=== PATIENT | male | born 1960 | race Caucasian/White ===

== ENCOUNTER 2018-12-03 08:40 | Inpatient (IN) ==
[2018-12-03] MEDS ORDERED: NS 1,000 ML IV ONE ×2 (09:06→11:56)
[2018-12-03] MEDS ORDERED: TORADOL IV ONE (09:06)
--- NOTE | 2018-12-03 09:48 | Diag Imaging Result Doc PS360 ---
CT ABDOMEN/PELVIS W/O CONTRAST - 12/03/2018 INDICATION: Right-sided flank pain COMPARISON: 09/22/2014 FINDINGS: The lung bases are clear and the heart size is normal. There is a huge obstructing right proximal ureter stone. This measures 17 x 8 mm. There is severe right hydronephrosis. No distal stones. No left-sided obstruction. No other renal stones. Benign left renal cyst. No bowel obstruction or inflammation. Normal appendix. Mild diverticulosis of the colon. Urinary bladder, prostate, and rectum are normal. There are moderate degenerative changes of the spine. No acute or suspicious bony lesion. IMPRESSION: Very large obstructing right proximal ureter stone. Severe right hydronephrosis. This exam was performed using automated exposure control, adjustment of mA or kV according to patient size, and/or use of iterative reconstruction technique Electronically signed by Jonah Rodríguez 12/03/2018 9:46 AM
[2018-12-03 10:47] LABS: URINE SOURCE CLEAN CATCH
[2018-12-03 10:50] LABS: BILIRUBIN URINE NEGATIVE (NEGATIVE); BLOOD URINE MODERATE (NEGATIVE); COLOR YELLOW; GLUCOSE URINE NEGATIVE (NEGATIVE); KETONE URINE NEGATIVE (NEGATIVE); LEUKOCYTES URINE NEGATIVE (NEGATIVE); NITRITE URINE NEGATIVE (NEGATIVE); PROTEIN URINE TRACE mg/dL (NEGATIVE); SP GRAVITY URINE 1.011; TURBIDITY URINE CLEAR (CLEAR); UROBILINOGEN URINE NORMAL (NORMAL)
[2018-12-03 10:51] LABS: UR EPITHELIAL CELLS <10 /HPF (<10); URINE BACTERIA NEGATIVE /HPF; URINE RBC 20-40 /HPF (<10); URINE WBC <10 /HPF (<10)
[2018-12-03] MEDS ORDERED: ZOFRAN IV PRN (11:56)
--- NOTE | 2018-12-03 12:40 | PROVIDER DOCUMENTATION ---
This chart was entered by Riya Trammell Scribe, acting as scribe for Rafael Walters MD. HPI-Male Problem - General Chief Complaint: Flank Pain Stated Complaint: KIDNEYSTONE Time Seen by Provider: 12/03/18 09:01 Source: patient Allergies/Adverse Reactions: Patient Allergies Allergy/AdvReac Type Severity Reaction Status Date / Time No Known Allergies Allergy Verified 09/24/14 11:32 Home Medications: Home Medication List Medication Instructions Recorded Confirmed Last Taken Type Bisoprolol Fumarate/Hctz 1 each PO DAILY 09/24/14 12/03/18 12/02/18 History [Bisoprolol-Hctz 5-6.25 mg Tab] 5-6.25 mg - History of Present Illness-Male Nature of Presenting Problem: 58yom presents to ED cc right flank pain, decreased urine output and nausea since Sunday. Pt reports he has hx of kidney stones. Pt denies v/d. Pt is nontoxic and afebrile upon exam. Location of Complaint: reports: right flank Radiation: reports: none Quality of Pain: reports: sharp Severity in ED: reports: moderate Onset/Duration: reports: 5 days ago Timing: reports: still present Context/Activities at Onset: reports: light activity Urinary Symptoms: reports: retention Associated Symptoms: reports: nausea. denies: diarrhea, vomiting Similar Symptoms Previously?: Yes Recently seen or treated by another doctor?: No Review of Systems - Adult - REVIEW OF SYSTEMS - ADULT Constitutional: reports: see HPI. denies: chills, fever, fatique Eyes: reports: no symptoms reported Ears, Nose, Mouth & Throat: reports: no symptoms reported Cardiovascular: reports: no symptoms reported Respiratory: reports: no symptoms reported Gastrointestinal: reports: see HPI, nausea. denies: abdominal pain, diarrhea, vomiting Genitourinary: reports: see HPI, flank pain (right), urinary retention Musculoskeletal: reports: no symptoms reported Integumentary: reports: no symptoms reported Neurological: reports: no symptoms reported Psychiatric: reports: no symptoms reported Endocrine: reports: no symptoms reported Hematologic/Lymphatic: reports: no symptoms reported Allergic/Immunologic: reports: no symptoms reported All Other Systems: Reviewed and Negative Past History - Adult - PAST MEDICAL HISTORY-ADULT Review of Records: reports: Nursing Assessment Review, Medications Reviewed, Social history reviewed & non-contributory. Major Childhood Illnesses: reports: denies history Cardiovascular: reports: denies history Respiratory: reports: denies history Gastrointestinal: reports: denies history Obstetrical/Gynecological: reports: denies history Genitourinary: reports: denies history Musculoskeletal: reports: denies history Neurological: reports: denies history Endocrine/Immune: reports: denies history Other Conditions: reports: denies history - IMMUNIZATION STATUS Childhood Immunizations: See Nurse Assessment Flu Vaccine: See Nurse Assessment - FAMILY HISTORY Family History: reviewed, not pertinent - SOCIAL HISTORY Smoking: cigarettes, greater than 1 pack/day Provider spent 3-5 mins advising pt. on dangers of tobacco.: Discussed manners to quit use, and f/u contacts for add'l counseling. Physical Exam-General - PHYSICAL EXAM-ADULT Initial Vital Signs Reviewed: Yes - CONSTITUTIONAL General Appearance: appears well, alert, no apparent distress. negative: anxious, combative - EYES Eyes: PERRL/EOMI, pink conjunctivae. negative: photophobia - HEAD, EARS, NOSE, MOUTH & THROAT HENMT: normocephalic/atraumatic, moist mucous membranes. negative: angioedema - RESPIRATORY Respiratory: chest non-tender, lungs clear, normal breath sounds. negative: stridor, wheezing - CARDIOVASCULAR Cardiovascular: normal peripheral pulses, regular rate, rhythm, no edema. negative: bradycardia, tachycardia - GASTROINTESTINAL (ABDOMEN) Abdominal Exam: normal bowel sounds, non tender, soft. negative: rebound, tenderness - MUSCULOSKELETAL Back Exam: no vertebral tenderness, CVA tenderness (right) Extremity: normal inspection. negative: deformity - SKIN Integumentary: normal color. negative: diaphoresis, jaundice - PSYCHIATRIC Psych/Mental Status: normal mood/affect, oriented x 3. negative: anxious, disheveled Progress - PLAN OF CARE/RESULTS Progress/Plan/Lab Results: Vital Signs - 8 hr 12/03/18 08:45 12/03/18 09:46 12/03/18 10:00 Temperature 97.5 F L Pulse Rate 62 Respiratory Rate 18 Blood Pressure 148/93 138/94 140/90 O2 Sat by Pulse Oximetry 98 96 97 12/03/18 10:02 Temperature Pulse Rate Respiratory Rate Blood Pressure 138/87 O2 Sat by Pulse Oximetry Laboratory Results - last 24 hr 12/03/18 10:33 Urine Source CLEAN CATCH Urine Color YELLOW Urine Turbidity CLEAR Urine pH 7.0 Ur Specific [place] 1.011 Urine Protein TRACE A Ur Glucose (Stick) NEGATIVE Ur Ketones (Stick) NEGATIVE Urine Blood MODERATE A Urine Nitrite NEGATIVE Urine Bilirubin NEGATIVE Urobilinogen Dipstick NORMAL Urine Leukocytes NEGATIVE Urine WBC (Auto) <10 Urine RBC (Auto) 20-40 A U Epithel Cells (Auto) <10 Urine Bacteria (Auto) NEGATIVE Orders Category Date Time Status Admit - [facility] Routine AdmDCTranf 12/03/18 11:56 Active Activity - Bed Rest with BRP ORDERED Care 12/03/18 11:56 Active Nursing- MD Consult Request ROUTINE Care 12/03/18 11:59 Active Saline Loc DIRECTED Care 12/03/18 11:56 Active Vital Signs Order ROUTINE Care 12/03/18 11:56 Active Z-Document. for Tele Applied ORDERED Care 12/03/18 11:57 Active Physician/Provider Consults Routine Cons 12/03/18 11:56 Ordered Heart Healthy Diet Diet 12/03/18 11:[address] ABDOMEN/PELVIS W/O CONTRAST [CT] Stat Exams 12/03/18 09:06 Completed CBC WITH ELECTRONIC DIFF [HEME] Stat Lab 12/03/18 11:54 Uncollected COMPREHENSIVE METABOLIC PANEL [CHEM] Stat Lab 12/03/18 11:54 Uncollected URINALYSIS W/POSS RFLX CULT [URINALYSIS] Stat Lab 12/03/18 10:33 Completed 0.9% Sodium Chloride Inj [Ns] 1,000 ml Med 12/03/18 11:56 Active IV 200 mls/hr 0.9% Sodium Chloride Inj [Ns] 1,000 ml Med 12/03/18 09:06 Discontinued IV 999 mls/hr Hydromorphone [Dilaudid] Med 12/03/18 11:56 Active 1 mg IV Q4H PRN PRN Ketorolac [Toradol] Med 12/03/18 09:06 Discontinued 15 mg IV NOW ONE Ketorolac [Toradol] Med 12/03/18 14:00 Active 15 mg IV Q4H PRN PRN Ondansetron [Zofran] Med 12/03/18 11:56 Active 4 mg IV Q4H PRN PRN Telemetry [OM.EQ] Routine Oth 12/03/18 11:56 Active Transfer/Admit Order [TRANSFER] Routine Transfer 12/03/18 11:59 Ordered - CT/MRI 1 CT Study: Abdomen, Pelvis Impression: See EMR Report (IMPRESSION: Very large obstructing right proximal ureter stone. Severe right hydronephrosis. This exam was performed using automated exposure control, adjustment of mA or kV according to patient size, and/or use of iterative reconstruction technique Electronically signed by Alexa Rodríguez 12/03/2018 9:46 AM 12/03/18 0946) - CONSULTS/PCP/HOSPITALIST Notification #1 *Consult/PCP/Hospitalist*: Dr. Dunbar Time Discussed: 11:48 Consult Disposition: other (will see pt upstairs) #2 Consult: Time Discussed: 11:55 Consult Disposition: Admit (accepted pt) Departure - Departure Date of Disposition Decision: 12/03/18 Time of Disposition Decision: 12:40 DIAGNOSIS: Ureterolithiasis Disposition: ADMITTED INPATIENT 09 Certified Medical Emergency: Emergent Condition: Stable Additional Freetext Instructions: ED Follow Up Instructions: You have been treated by a care provider in the Emergency Department. These instructions are being provided to you so you can have an understanding of how to care for yourself upon discharge. Upon discharge from the Emergency Department, you are responsible for making arrangements for follow-up care by a physician of your choice. Take all prescribed medications as directed. Return to the Emergency Department immediately for any new or worsening sy mptoms. You may call the Physician Referral phone number at [phone] to obtain a list of Physicians who are taking new patients. Referrals and Follow-Ups: Theron Park MD [Primary Care Provider] - Discharge Education: Steps to Quit Smoking, [id number] - Critical Care Note This patient required my direct & personal management of CC.: No Attestation - Physician/ KRISTA Attestation Patient care was provided by Advanced Practice Provider:: No The physician spent face to face time with patient:: Yes Advanced Practice Provider documentation review:: Supervising physician onsite and consulted in the evaluation and care of this patient. The physician did have a face to face encounter with the patient. This chart was documented by the indicated scribe, (Riya Trammell Scribe) and accurately reflects the services I performed and decisions made by me, Rafael Walters MD, as attested by the provider's signature.
[2018-12-03 12:53] LABS: BASO# 0.03 X1000 (0.0-0.2); BASO% 0.3 % (0.0-0.8); EOS# 0.07 X1000 (0.0-0.7); EOS% 0.7 % (0.0-10.0); HEMATOCRIT 48.2 % (42.0-52.0); HEMOGLOBIN 16.3 g/dL (14.0-18.0); IMM GRAN# 0.02 X1000 (0.0-0.04); IMM GRAN% 0.2 % (0.0-0.5); LYMPH# 2.77 X1000 (1.2-3.4); LYMPH% 27.6 % (20.5-51.1); MCHC 33.8 g/dL (33-37); MCV 91.6 FL (81-99); MONO# 0.88 X1000 (0.11-0.59); MONO% 8.8 % (1.7-9.3); MPV 10.8 FL (7.4-10.4); NEUT# 6.25 X1000 (1.4-6.5); NEUT% 62.4 % (42.2-75.2); PLT 189 X1000 (130-400); RBC 5.26 XMIL (4.7-6.1); WBC 10.02 X1000 (4.8-10.8)
[2018-12-03 13:11] LABS: AGAP 13; ALB/GLOB RATIO 1.2; ALBUMIN 4.5 g/dL (3.5-5.0); ALKALINE PHOSPHATASE 83 U/L (32-122); BUN 17 mg/dL (8-22); CALCIUM 8.8 mg/dL (8.8-10.2); CHLORIDE 100 mmol/L (98-107); COSMO 279; CREATININE 0.9 mg/dL (0.7-1.2); ESTIMATED GFR > 60; GLUCOSE 101 mg/dL (70-104); GOT 21 U/L (10-34); GPT 22 U/L (10-44); POTASSIUM 3.7 mmol/L (3.5-5.1); SODIUM 139 mmol/L (136-145); TCO2 26 mmol/L (25-35); TOTAL BILIRUBIN 0.47 mg/dL (0.20-1.00); TOTAL PROTEIN 8.2 g/dL (6.3-8.3)
[2018-12-03] MEDS: DILAUDID IV PRN ×3 (13:32→22:37)
[2018-12-03] MEDS ORDERED: TORADOL IV PRN (14:00)
--- NOTE | 2018-12-03 19:36 | CONSULTATION ---
DATE OF CONSULTATION: 12/03/2018 CONSULTING PHYSICIAN: Emergency room staff. REASON FOR CONSULTATION: Right ureteral stone. HISTORY OF PRESENT ILLNESS: A 58-year-old male with extensive history of urolithiasis in the past, who developed right flank pain five days ago when he was in [place]. The pain persisted and he made his way back to [place], where he presented to the emergency room, with CT scan of abdomen and pelvis revealing a 17 x 8 mm right proximal ureteral stone. He was admitted to Dr. Park's service and Urology was consulted. Patient has history of urolithiasis, and has had both ureteroscopy with stone basket extraction and stent, as well as extracorporeal shockwave lithotripsy by both Dr. Lux and Dr. Pugh in the remote past. Per review of the clinical records, he was last seen in 2014, when in September, he had left ureteroscopy with laser lithotripsy, basket extraction, and placement of stent. He did not come in for his postoperative followup. He denies having his stones analyzed, although again per record review, he had several stone analyses, most recent in October 2014, revealing calcium oxalate and calcium phosphate mixture. PAST MEDICAL HISTORY: Hypertension, metabolic syndrome, neuropathy, borderline cholesterol per patient, and urolithiasis. PAST SURGICAL HISTORY: ESWL, ureteroscopy with laser lithotripsy and stone basket extraction. ALLERGIES: No known drug allergies. HOME MEDICATIONS: Norvasc, bisoprolol/hydrochlorothiazide, gabapentin, and Hyzaar. SOCIAL HISTORY: Smokes 1-1/2 packs per week. Denies illicit drug use. FAMILY HISTORY: Positive for bladder cancer in his father, who had to undergo cystectomy. REVIEW OF SYSTEMS: Given and 12 systems negative, except as per the HPI. PHYSICAL EXAMINATION: T 98.1 degrees, P 50, BP 141/84.General: No acute distress. HEENT: Normocephalic, atraumatic. Neck: Supple. Cardiovascular: Regular rhythm. Pulmonary: Bilateral breath sounds. Abdomen: Protuberant. Nontender to palpation. Back: Mild right CVA tenderness. Genitourinary: Normal phallus. Patent meatus. No penile lesions noted. Testes descended bilaterally without masses. Perineum is intact. Digital rectal Examination: Deferred at this time. Lymph nodes: No groin lymphadenopathy. Dermatologic: No obvious skin rashes. Neurologic: Alert and oriented x3. Psychiatric: Appropriate mood and affect. LABORATORY DATA: White cell count is 10,000, hematocrit 48. Creatinine is 0.9. Urinalysis is positive for blood and white cells. PERTINENT IMAGING: CT of abdomen and pelvis without contrast on 12/03/2018, revealing a 17 x 8 mm right proximal ureteral stone with severe right hydronephrosis and no other stones, as well as a left renal cyst. ASSESSMENT: A 58-year-old male with history of urolithiasis, who has a small left renal cyst, severe right hydronephrosis, and obstructing right ureteral stone. I discussed with the patient that given the size of the stone, he is extremely unlikely to pass it on his own. I personally reviewed CT images. We discussed that we could proceed with cystoscopy and right ureteral stent placement, followed by right extracorporeal shock lithotripsy and stent removal a week later, versus performing right ureteroscopy with laser lithotripsy, stone basket extraction, and ureteral stent. Pros and cons of each were discussed. He wants to proceed with the latter. We discussed the risks of the procedure including, but not limited to, bleeding, infection, injury to the ureter, injury to the bladder, injury to adjacent structures, inability to remove the entire stone, and need for additional interventions. He voiced understanding and he wants to proceed. PLAN: 1. NPO after midnight. 2. To the operating room tomorrow for cystoscopy, right ureteroscopy, laser lithotripsy, stone basket extraction, placement of right ureteral stent. 3. Thank you for the consultation. cc: MD Theron Gilmore MD
[2018-12-03] MEDS ORDERED: SODIUM CHLORIDE 0.9% INJ SCH (20:15)
[2018-12-03] MEDS: NS + KCL 20 MEQ 1,000 ML IV SCH (21:01)
[2018-12-03] MEDS: NEURONTIN PO SCH (21:02)
[2018-12-03] MEDS: PEPCID IV SCH (21:02)
--- NOTE | 2018-12-04 00:41 | HISTORY AND PHYSICAL ---
CHIEF COMPLAINT: Right flank pain. HISTORY OF PRESENT ILLNESS: Mr. Palmer is a 58-year-old, white gentleman, started having pain in the right flank 4 days ago. The pain was moderate to severe in intensity. The pain comes and goes. Pain from the flank going to the right groin. At times, the pain was doubling the patient up. The patient has some [place] from his dentist, which he took. He denied any gross hematuria. The patient claimed with the pain he was breaking out in cold sweats. When the pain started patient was [place]. He was able to manage to come back to [place]. Yesterday, patient took some Excedrin without significant relief. Today, he was going to work and the pain was severe. He came to the emergency room. The patient had a CT scan of the abdomen and pelvis done, which did reveal 17 x 8 mm right proximal ureteric stone with significant hydronephrosis on the right side. The patient was in moderate to severe pain, and we decided to admit the patient for pain management and further treatment. The patient denied any fever. He did have some chills. No gross hematuria. The patient had a similar type of pain on the left side in 2014 requiring surgical intervention and stone removal. The patient denied any diarrhea, blood, or mucus in the stool. No typical chest pain or palpitations. Does have chronic cough with scanty sputum production. No headache, no runny nose, stuffy nose. The patient does have symptoms suggestive of peripheral neuropathy, bilateral feet pain. ALLERGIES: No known drug allergy. MEDICATIONS: Includes Ziac, Norvasc, Neurontin, Hyzaar. PAST MEDICAL HISTORY: Hypertension, nephrolithiasis, hyperlipidemia, peripheral neuropathy, metabolic syndrome, history of her nephrolithiasis. PAST SURGICAL HISTORY: Patient had a ureteroscopy with laser lithotripsy and stone basket extraction in 2015. SOCIAL HISTORY: , lives with the . Smokes 1-1/2 pack per week, the patient claims he is trying to cut back and quit smoking. Denied alcohol or substance abuse. FAMILY HISTORY: Significant for father with bladder cancer requiring total cystectomy. PHYSICAL EXAMINATION: GENERAL: Middle-aged, white gentleman in mild distress. VITAL SIGNS: Blood pressure 141/84, pulse 50, respiration 14, temperature 98.1 degrees. SKIN: Normal turgor. No rash or petechiae. HEENT: Atraumatic, normocephalic. [place] conjunctivae, anicteric sclerae. Extraocular muscle movement normal. Fundus cannot be penetrated. Good oral hygiene. No tonsillopharyngeal congestion or exudate. Ears and nose benign. NECK: Supple. No JVD, thyromegaly, or lymphadenopathy. CHEST: Bilateral good air entry present. No rales or rhonchi. CARDIOVASCULAR: S1 and S2 heard. No gallop or thrill. ABDOMEN: Soft. No distention. Bowel sounds present. No organomegaly or mass. The patient does have some tenderness at the right renal angle. EXTREMITIES: No cyanosis, clubbing. No acute DVT. SIEBEL CONSULTANT: Alert, awake. Able to move all 4 limbs. LABORATORY DATA: Reveals WBC count 10.02, hemoglobin 16.3, hematocrit 48.2, platelet count 189,000. Electrolytes were fairly benign. Urinalysis did reveal 20 to 40 RBCs and moderate blood. CT scan of the abdomen and pelvis results reviewed. ASSESSMENT AND PLAN: 1. Consideration of right ureteric stone with obstructive uropathy. 2. Hypertension. 3. Hyperlipidemia. 4. Metabolic syndrome. PLAN: Admit the patient. IV hydration, pain management. GI prophylaxis and DVT prophylaxis. Urology consult. Encourage smoking cessation. Overall plan discussed with the patient and he is in agreement. cc: Theron Park MD
[2018-12-04] MEDS: DILAUDID IV PRN ×2 (04:54→08:43)
[2018-12-04] MEDS: NS + KCL 20 MEQ 1,000 ML IV SCH (04:56)
--- NOTE | 2018-12-04 06:48 | PROGRESS NOTE ---
DATE: 12/04/2018 SUBJECTIVE: Mr. Palmer is doing fair. The patient did have episode of right renal and ureteric colic requiring pain medicine. No high-grade fever or chills. Denied any nausea or vomiting. The patient does have bradycardia. Blood pressure doing better. No typical chest pain or palpitations. The patient is scheduled to have surgery today by Dr. Dunbar. The patient is in agreement. OBJECTIVE: Vital Signs: Blood pressure 128/81, pulse 55, respirations 18, and temperature 98.1 degrees. Neck: Supple. No JVD. Lungs: Bilateral good air entry present. CVS: S1 and S2 heard. Abdomen: Soft, nontender. Bowel sounds present. Mild tenderness right renal angle. ESOL TEACHER ASSISTANT: Alert, awake, and able to move all 4 limbs. LABORATORY DATA: Done yesterday noted. CONSIDERATION: 1. Right ureteric stone with obstructive uropathy. 2. Hypertension. 3. [place] arrhythmia could be due to medication. 4. Hematuria. PLAN: The patient is scheduled to have surgery depending on Dr. Dunbar's recommendation. We will make further recommendations. Encourage patient to quit smoking. Continue rest of the treatment and close observation. cc: Theron Park MD
[2018-12-04 07:12] LABS: HEMATOCRIT 43.3 % (42.0-52.0); HEMOGLOBIN 14.8 g/dL (14.0-18.0); MCHC 34.2 g/dL (33-37); MCV 93.7 FL (81-99); MPV 10.6 FL (7.4-10.4); RBC 4.62 XMIL (4.7-6.1); RDW 13.1 % (11.5-14.5); WBC 6.27 X1000 (4.8-10.8)
[2018-12-04 07:41] LABS: AGAP 9; ALB/GLOB RATIO 1.3; ALBUMIN 3.9 g/dL (3.5-5.0); ALKALINE PHOSPHATASE 74 U/L (32-122); BUN 13 mg/dL (8-22); CALCIUM 8.7 mg/dL (8.8-10.2); CHLORIDE 105 mmol/L (98-107); COSMO 283; ESTIMATED GFR > 60; GLUCOSE 94 mg/dL (70-104); GOT 18 U/L (10-34); GPT 20 U/L (10-44); POTASSIUM 4.4 mmol/L (3.5-5.1); SODIUM 142 mmol/L (136-145); TCO2 28 mmol/L (25-35); TOTAL BILIRUBIN 0.45 mg/dL (0.20-1.00)
[2018-12-04] MEDS: PEPCID IV SCH (08:16)
[2018-12-04] MEDS: NEURONTIN PO SCH ×2 (08:17→15:58)
[2018-12-04] MEDS ORDERED: HYDROCHLOROTHIAZIDE PO SCH (09:00)
[2018-12-04] MEDS ORDERED: HYZAAR 50/12.5 MG PO SCH (09:00)
[2018-12-04] MEDS ORDERED: ZEBETA PO SCH (09:00)
[2018-12-04] MEDS ORDERED: ZIAC 5/6.25 MG PO SCH (09:00)
[2018-12-04] MEDS ORDERED: NORVASC PO SCH (09:00)
--- NOTE | 2018-12-04 10:24 | Diag Imaging Result Doc PS360 ---
CHEST-2 VIEWS - 12/04/2018 INDICATION: hypoxia COMPARISON: 11/10/2016 FINDINGS: The lungs are normally expanded and clear. Heart size and mediastinal contours are normal. No pneumothorax or pleural effusion. IMPRESSION: Negative exam. Electronically signed by Jonah Rodríguez 12/04/2018 10:22 AM
[2018-12-04] MEDS ORDERED: DIPRIVAN 1% ONE (11:22)
[2018-12-04] MEDS ORDERED: XYLOCAINE-MPF 2% ONE (11:23)
[2018-12-04] MEDS ORDERED: KEFZOL 2 GM in NS 100 ML IV ONE (11:55)
[2018-12-04] MEDS ORDERED: KEFZOL 2 GM/D5W 2 GM/50 ML IVPB ONE (11:57)
[2018-12-04] MEDS ORDERED: EPHEDRINE ONE (12:18)
[2018-12-04] MEDS ORDERED: ATROPINE ONE (12:30)
[2018-12-04] MEDS ORDERED: DECADRON ONE (12:33)
[2018-12-04] MEDS ORDERED: ZOFRAN ONE (12:33)
[2018-12-04] MEDS ORDERED: D5W IV ONE (12:53)
[2018-12-04] MEDS ORDERED: KEFZOL IV ONE (12:53)
[2018-12-04 18:14] VITALS: BP 152/88
[2018-12-04] MEDS ORDERED: PERIDEX MT SCH (21:00)
--- NOTE | 2018-12-05 06:24 | OPERATIVE NOTE ---
PROCEDURE DATE: 12/04/2018 SURGEON: Boris Dunbar MD PREOPERATIVE DIAGNOSIS: Very large right ureteral stone, hydronephrosis, and flank pain. POSTOPERATIVE DIAGNOSIS: Very large right ureteral stone, hydronephrosis, and flank pain. PROCEDURE: Cystoscopy, right ureteroscopy, laser lithotripsy, stone basket extraction, placement of 6-Yemeni, 24 cm ureteral stent. INDICATIONS: A 58-year-old male with history of urolithiasis in the past who presented with severe right flank pain, and was found to have 17 x 8 mm right ureteral stone with severe hydronephrosis. He also had a left renal cyst. He desires intervention as he has significant pain and extremely unlikely chance of passing the stone on his own. FINDINGS: Obstructing stone. The stone fragments were sent off for analysis. DESCRIPTION OF PROCEDURE: After obtaining informed consent, patient was brought to the operating room. Preoperative antibiotics and laryngeal mask anesthesia were administered. He was placed in lithotomy position, prepped and draped in sterile fashion. A 20-Yemeni rigid cystoscope was used to gain access to the prostatic urethra in the bladder. His urethra showed bilobar hypertrophy with mild obstruction. Bladder showed no evidence of mucosal lesions, excessive trabeculations, diverticula or stones within the bladder lumen. We turned attention to the right ureteral orifice which was cannulated with a PTFE wire. It was in turn advanced to the level of the right renal pelvis. A very large stone was seen fluoroscopically at the level of proximal ureter as per CT scan. We then introduced rigid ureteroscope alongside of the wire. The stone was eventually seen. A 0 Nitinol basket was placed behind the stone and opened. We then used 365 micron Holmium laser fiber to break the stone up with energy settings of 1 joule at a frequency of 10 hertz. The stone fragments were retrieved with the basket multiple times. We sent some of them off for analysis. Repeat ureteroscopy to the level right ureteropelvic junction revealed no evidence of sizable stone fragments remaining, and no evidence of ureteral injury. Given the significant mucosal edema, we decided to place ureteral stent. In a standard fashion, 6-Yemeni 24 cm stent was advanced over the wire via cystoscope with the proximal coil position confirmed fluoroscopically and distal coil directly visualized. The string was left attached to the stent. Bladder was emptied. He was extubated and taken to PACU for further recovery. ESTIMATED BLOOD LOSS: None. COMPLICATIONS: None. SPECIMENS: Right ureteral stone fragments which were sent off for analysis. DRAINS: A 6-Yemeni, 24 cm ureteral stone. DISPOSITION: To PACU and back to the floor for recovery. I have discussed with the patient and that the plan would be for him to remove his stent in 3 days. I will plan on seeing him in 4 weeks to review stone analysis, and then set him up for 24 urine studies. cc: MD Theron Gilmore MD
--- NOTE | 2018-12-05 09:04 | Diag Imaging Result Doc PS360 ---
EXAM: FLUROSCOPY CYSTO 12/04/2018 HISTORY: RT. STENT PLACEMENT TECHNIQUE: 22 images, COMMENT: There is an apparent stone in the right ureter at the level of L3. This was apparently removed during ureteroscopy by Dr. Dunbar and subsequently a stent was placed. No contrast was administered. IMPRESSION: Right ureteral stone extraction and stent placement. Electronically signed by Brenton Singh 12/05/2018 9:01 AM
--- NOTE | 2018-12-05 18:58 | DISCHARGE SUMMARY ---
ADMISSION DATE: 12/03/2018 DISCHARGE DATE: 12/04/2018 FINAL DISCHARGE DIAGNOSES: Right ureteric stone with right obstructive uropathy. Patient underwent cystoscopy and laser lithotripsy removal of the stone. The patient had stent placement. Patient's other problems include hypertension, hyperlipidemia, BPH, possible plantar fasciitis, and peripheral neuropathy. HISTORY: Mr. Palmer a 58-year-old white gentleman admitted with pain in the right flank going to the right groin, moderate to severe pain, some microscopic hematuria. The rest of the information from history and physical. In the ER, the patient was found to have 17 x 8 mm stone in the right upper ureter. Patient also had a hydronephrosis. Urology consult obtained with Dr. Dunbar. The patient underwent surgery with stone removal and tolerated procedure well. The patient was doing better and eager to go home, and I discharged the patient home. Continue home medicine. Plenty of liquids orally. Follow up with me in 7 to 10 days. I gave him 12 [place] 7.5 mg. in case of more distress, call us back or go to emergency room. Monitor blood pressure at home. Encouraged patient to quit smoking. cc: Theron Park MD
== END 2018-12-04 18:20 | disposition home or self-care (01) | DRG 661 ==
LOC: ED 08:40 → 4N 12:50
PROVIDERS: ADMIT Internal Medicine; ATTEND Internal Medicine